=== PATIENT | male | born 1960 | race Caucasian/White ===

== ENCOUNTER 2023-10-12 14:50 | Emergency (ER) | payer OTHER ==
[~2023-10-12] VITALS: Ht 175.3 cm; Wt 79.0 kg
[2023-10-12] VITALS (18 sets, daily range): BP systolic 79–132; BP diastolic 51–78
[2023-10-12] MEDS ORDERED: HUMALOG100 UNIT/M SC (15:08)
[2023-10-12] MEDS ORDERED: NEURONTIN600 MG PO (15:08)
[2023-10-12] MEDS ORDERED: CRESTOR40 MG PO (15:09)
[2023-10-12] MEDS ORDERED: AMITRIPTYLINE H50 MG PO (15:09)
[2023-10-12] MEDS ORDERED: ENTRESTO 24-261 TAB (15:09)
[2023-10-12] MEDS ORDERED: PLAVIX75 MG PO (15:10)
[2023-10-12] MEDS ORDERED: TRIGLIDE160 MG PO (15:10)
[2023-10-12] MEDS ORDERED: COREG25 MG PO (15:10)
[2023-10-12] MEDS ORDERED: JARDIANCE10 MG (15:11)
[2023-10-12] MEDS ORDERED: ALDACTONE25 MG (15:11)
[2023-10-12] MEDS ORDERED: ISOSORB MONO30 MG PO (15:11)
[2023-10-12] MEDS ORDERED: ASPIRINCHW 81MG PO (15:12)
[2023-10-12] MEDS ORDERED: VITAMIN D-3400 UNIT PO (15:12)
[2023-10-12] MEDS ORDERED: MULTIVITAMI1 PO (15:12)
[2023-10-12 15:40] LABS: BASO% 0.2 % (0-3); EOS% 1.4 % (0-8); HEMOGLOBIN 13.3 g/dl (14.0-18.0); IMMATURE GRANULOCYTES 0.1 % (0.0-5.0); LYMPH% 30.4 % (15-41); MEAN CELL VOLUME 95.8 fL CALC (80.0-100.0); MEAN CORPUSCULAR HGB 31.1 pG CALC (26.0-32.0); MEAN CORPUSCULAR HGB CONC 32.4 g/dL CAL (32.0-36.0); MONO% 8.8 % (2-13); NEUT# 4.75 thou/uL (1.82-7.42); NEUT% 59.1 % (42-76); RED BLOOD COUNT 4.28 mill/uL (4.70-6.10); RED CELL DISTRI WIDTH 12.8 % (11.5-15.5)
[2023-10-12 15:58] LABS: ALBUMIN 4.6 g/dL (3.2-5.0); ALKALINE PHOSPHATASE 53 u/l (38-126); ANION GAP 14 (6-22 (CALC)); BILIRUBIN, TOTAL 0.4 mg/dL (0.2-1.3); BUN 28 mg/dL (8-23); BUN/CREATININE RATIO 17 (12-20 (CALC)); CARBON DIOXIDE 27 mmol/l (22-30); CHLORIDE 104 mmol/l (95-108); CREATININE 1.7 mg/dL (0.7-1.3); GFR FOR AFR.AMER. 50 ML/MIN (>=60 (CALC)); GFR OTHER RACES 41 ML/MIN (>=60 (CALC)); POTASSIUM 3.4 mmol/l (3.5-5.1); SGOT/AST 32 u/l (19-48); SODIUM 141 mmol/l (137-146); TOTAL PROTEIN 7.7 g/dL (6.3-8.2)
== END 2023-10-12 18:58 | disposition home or self-care (01) | DRG 312 ==
LOC: ED 14:50
PROVIDERS: Family Medicine
DX: I95.1 Orthostatic hypotension (principal); S00.83XA Contusion of other part of head, initial encounter; I10 Essential (primary) hypertension; E11.9 Type 2 diabetes mellitus without complications; W18.39XA Other fall on same level, initial encounter; Y92.000 Kitchen of unspecified non-institutional (private) residence as the place of occurrence of the external cause; Z95.1 Presence of aortocoronary bypass graft; Z86.73 Personal history of transient ischemic attack (TIA), and cerebral infarction without residual deficits; Z95.810 Presence of automatic (implantable) cardiac defibrillator